=== PATIENT | female | born 1955 | race Caucasian/White ===

== ENCOUNTER → 2018-02-27 | Outpatient (CLI) | payer OTHER ==
[~2018-02-27] MED LIST: NO HOME MEDICATIONS
== END ==
LOC: MC.RAD 06:48
DX: Z12.31 Encounter for screening mammogram for malignant neoplasm of breast (principal); Z85.3 Personal history of malignant neoplasm of breast; Z98.890 Other specified postprocedural states

== ENCOUNTER → 2019-03-31 | Outpatient (CLI) | payer OTHER | LOC: MC.RAD 09:45 | DX: Z12.31 Encounter for screening mammogram for malignant neoplasm of breast (principal) ==

== ENCOUNTER → 2020-05-16 | Outpatient (CLI) | payer OTHER | LOC: MC.RAD 09:31 | DX: Z12.31 Encounter for screening mammogram for malignant neoplasm of breast (principal); Z01.419 Encounter for gynecological examination (general) (routine) without abnormal findings; Z98.890 Other specified postprocedural states; Z92.3 Personal history of irradiation ==

== ENCOUNTER → 2021-07-06 | Outpatient (CLI) | payer OTHER ==
[~2021-07-06] MED LIST changes: +B-121000 MCG PO; +FOLIC ACID 11 MG/TA1 PO; +MASON NATURAL2000 IU PO; +SYNTHROID0.075 MG/T PO; +WELLBUTRIN SR150 M1 PO; +[UNRECOGNIZED DRUG - OTHER] PO
== END ==
LOC: MC.RAD 08:15
DX: Z12.31 Encounter for screening mammogram for malignant neoplasm of breast (principal); Z85.3 Personal history of malignant neoplasm of breast